=== PATIENT | male | born 1980 | race Hispanic/Latino ===

== ENCOUNTER 2022-01-07 12:29 | Emergency (ER) | payer OTHER ==
[~2022-01-07] VITALS: Ht 172.7 cm; Wt 81.6 kg
[2022-01-07] MEDS ORDERED: METHYLPREDNISOLONE SOD SUCC 125 MG/2ML VIAL IV STA (12:35)
[2022-01-07] MEDS ORDERED: FAMOTIDINE 20 MG/2 ML VIAL IV STA (12:35)
[2022-01-07] MEDS ORDERED: EPINEPHRINE HCL 1:1000 1ML 1 MG/ML AMP INJ STA (12:35)
[2022-01-07] MEDS ORDERED: DIPHENHYDRAMINE HCL INJ 50 MG/ML VIAL IV ONE (12:45)
[2022-01-07] MEDS ORDERED: DIPHENHYDRAMINE HCL INJ 50 MG/ML VIAL ONE (12:49)
[2022-01-07] MEDS ORDERED: METHYLPREDNISOLONE SOD SUCC 125 MG/2ML VIAL ONE (12:49)
[2022-01-07] MEDS ORDERED: EPINEPHRINE HCL 1:1000 1ML 1 MG/ML AMP ONE (12:49)
[2022-01-07] MEDS ORDERED: FAMOTIDINE 20 MG/2 ML VIAL IV ONE (12:50)
[2022-01-07] MEDS ORDERED: PREDNISONE20 MG PO (13:22)
[2022-01-07] MEDS ORDERED: EPINEPHRIN0.3 MG/0.3 IM (13:22)
[2022-01-07] MEDS ORDERED: PEPCID20 MG PO (13:22)
== END 2022-01-07 14:10 | disposition home or self-care (01) ==
LOC: FSED 12:36
DX: R06.00 Dyspnea, unspecified (principal); T78.05XA Anaphylactic reaction due to tree nuts and seeds, initial encounter
CPT/HCPCS: 96372; 96374; 96375; 99283; J0171; J1200; J2930

== ENCOUNTER 2022-06-10 11:43 | Emergency (ER) | payer OTHER ==
[~2022-06-10] VITALS: Ht 172.7 cm; Wt 80.4 kg
[~2022-06-10 11:43] MED LIST: EPINEPHRIN0.3 MG/0.3 IM; PEPCID20 MG PO; PREDNISONE20 MG PO
[2022-06-10] MEDS ORDERED: IBUPROFEN 600 MG TAB PO STA (11:52)
[2022-06-10] MEDS ORDERED: IBUPROFEN 600 MG TAB ONE (12:17)
[2022-06-10] MEDS ORDERED: PENICILLIN V P500 MG PO (12:24)
== END 2022-06-10 12:31 | disposition home or self-care (01) ==
LOC: FSED 11:51
DX: R50.9 Fever, unspecified (principal); J10.1 Influenza due to other identified influenza virus with other respiratory manifestations; J02.0 Streptococcal pharyngitis; R05.9 Cough, unspecified
CPT/HCPCS: 83518; 87400; 99283